=== PATIENT | male | born 1960 | race Caucasian/White ===

== ENCOUNTER 2020-05-20 07:05 | Inpatient (IN) | payer MEDICARE, OTHER ==
[~2020-05-20] VITALS: Ht 185.4 cm; Wt 124.7 kg
[~2020-05-20 07:05] MED LIST: ALBUTEROL0.63 MG/3 NEB; ALBUTEROL2.5 MG/3 M NEB; ALDACTONE 25MG25 MG PO; ALDACTONE25 MG PO; AMLODIPINE BESYL5 MG PO; BANOPHEN25 M1 PO; BENADRYL 25MG C25 MG PO; BENADRYL E12.5 MG/5 PO; BREO ELLIPTA 21 EACH INH; CIPRO500 MG PO; CLINDAMYCIN HC300 MG PO; COREG 25MG TAB25 MG PO; COZAAR 50MG TAB50 MG PO; COZAAR50 MG PO; CRESTOR20 MG PO; CYANOCOBAL1000 MCG/1 INJ; DIFLUCAN 100 M100 MG PO; DULERA 200 MCG8.8 GM INH; DULOXETINE HCL30 MG PO; FERROUS SULFAT325 M2 PO; FLONASE 0.05% N16 GM; FLUZONE QU60 MCG/013 IM; FOSAMAX 10 MG T10 MG PO; FUROSEMIDE20 MG PO; GLUCOPHAGE500 MG PO; HYDROCOD-HOMAT1 EACH PO; HYZAAR 100-12.1 EACH PO; IBUPROFEN800 MG PO; INCRUSE ELLI62.5 MCG INH; INVANZ1 GM IV; JANUMET 50-1,01 EACH PO; JANUMET XR 50-1 EACH PO; K-DUR TAB 10 M10 MEQ PO; LANTUS INS100 UTS/M1 SC; LASIX20 MG PO; LEVAQUIN500 MG PO; LEVAQUIN750 MG PO; LEVOFLOXACIN750 MG PO; LOPRESSOR 50 MG50 MG PO; LOPRESSOR50 MG PO; LOSARTAN-HCTZ1 EACH PO; MELATONIN10 M2 PO; MIACALCIN NASA3.7 ML; NEURONTIN 400400 MG PO; NEURONTIN800 MG PO; NICOTINE PATCH1 EAC1 TD; NICOTINE PATCH1 EAC2 TD; NORCO 10-325 T1 EACH PO; NORCO 5-325 TA1 EACH PO; NORCO 7.5-3251 EACH PO; NORTRIPTYLINE H50 MG PO; PEPCID20 MG PO; PERCOCET 5/325 T1 EA PO; PROTONIX40 MG PO; REMERON15 MG PO; RISPERDAL0.5 MG PO; ROBAXIN-750750 MG PO; SINGULAIR10 MG PO; SPIRONOLACTONE25 MG PO; THERAGRAN M TAB1 EA PO; TOPROL XL100 MG PO; TRESIBA FL100 UNIT/1 SC; TRESIBA FL100 UNIT/1 SQ; VASCEPA1 GM PO; VENTOLIN HFA 66.7 GM INH; VITAMIN C 500500 MG PO; VITAMIN C500 M4 PO; VITAMIN D250000 UNIT PO; ZOSYN 3.3753.375 G1 IV; ZYRTEC10 MG PO; ZYVOX 600 MG T600 MG PO; ZYVOX IV 6600 MG/300 IV
[2020-05-20 07:47] LABS: HEMOGLOBIN 12.1 gm/dl (14.0-17.5); RED BLOOD COUNT 4.06 M/UL (4.20-5.50); WHITE BLOOD COUNT 9.3 K/UL (4.5-11.0)
[2020-05-20] MEDS ORDERED: FUROSEMIDE20 MG PO (09:30)
[2020-05-20] MEDS ORDERED: BREO ELLIPTA 11 EACH INH (09:32)
[2020-05-20] MEDS ORDERED: PAMELOR50 MG PO (09:34)
[2020-05-20] MEDS ORDERED: VENTOLIN HFA 66.7 GM INH (09:37)
[2020-05-20] MEDS ORDERED: HYDROCODON-ACE1 EAC6 PO (09:40)
[2020-05-20] MEDS ORDERED: JANUMET 50-1,01 EACH PO (09:45)
[2020-05-20] MEDS ORDERED: SPIRONOLACTONE50 MG PO (16:44)
[2020-05-20] MEDS ORDERED: NORTRIPTYLINE H50 MG PO (16:44)
[2020-05-20] MEDS ORDERED: FISH OIL 1,0001 EACH PO (16:45)
[2020-05-20] MEDS ORDERED: VITAMIN D21250 MCG PO (16:46)
[2020-05-20] MEDS ORDERED: NOVOLOG MI100 UNIT/1 SC (16:47)
[2020-05-21 03:50] LABS: HEMOGLOBIN 11.5 gm/dl (14.0-17.5); RED BLOOD COUNT 3.87 M/UL (4.20-5.50)
[2020-05-21 03:57] LABS: WHITE BLOOD COUNT 12.2 K/UL (4.5-11.0)
[2020-05-21 13:21] LABS: BUN/CREATININE RATIO 21 (0-10)
[2020-05-22 10:16] LABS: HEMOGLOBIN 11.4 gm/dl (14.0-17.5); RED BLOOD COUNT 3.78 M/UL (4.20-5.50); WHITE BLOOD COUNT 13.1 K/UL (4.5-11.0)
--- NOTE | 2020-05-22 14:58 | NUR ---
DRESSING CHANGED PER MD ORDER, PATIENT TOLERATED WELL.
[2020-05-23 03:16] LABS: HEMOGLOBIN 12.1 gm/dl (14.0-17.5); RED BLOOD COUNT 4.01 M/UL (4.20-5.50)
[2020-05-23 03:20] LABS: WHITE BLOOD COUNT 8.7 K/UL (4.5-11.0)
[2020-05-23 03:42] LABS: BUN/CREATININE RATIO 16 (0-10)
[2020-05-23] MEDS ORDERED: NEURONTIN800 MG PO (09:52)
--- NOTE | 2020-05-23 18:38 | NUR ---
DRESSING CHANGED COMPLETED ORDERED.
[2020-05-24 05:37] LABS: HEMOGLOBIN 12.8 gm/dl (14.0-17.5); RED BLOOD COUNT 4.35 M/UL (4.20-5.50); WHITE BLOOD COUNT 8.8 K/UL (4.5-11.0)
[2020-05-24 05:55] LABS: BUN/CREATININE RATIO 19 (0-10)
[2020-05-25 06:26] LABS: BUN/CREATININE RATIO 19 (0-10)
[2020-05-25] MEDS ORDERED: AUGMENTIN 875-1 EACH PO (12:26)
== END 2020-05-25 17:23 | disposition home or self-care (01) | DRG 40 ==
LOC: OR 07:05 → M/S 07:05 → OR 05-21 08:55 → M/S 05-22 13:15
PROVIDERS: Physician Assistant Medical; Podiatrist Foot & Ankle Surgery; ADMIT Internal Medicine
PROC: 0LSP0ZZ Reposition Left Lower Leg Tendon, Open Approach (ICD-10-PCS; principal; 2020-05-21)
PROC: 0SGL0KZ Fusion of Left Tarsometatarsal Joint with Nonautologous Tissue Substitute, Open Approach (ICD-10-PCS; principal; 2020-05-21)
PROC: 0SGJ04Z Fusion of Left Tarsal Joint with Internal Fixation Device, Open Approach (ICD-10-PCS; 2020-05-21)
DX: E11.610 Type 2 diabetes mellitus with diabetic neuropathic arthropathy (principal); I50.43 Acute on chronic combined systolic (congestive) and diastolic (congestive) heart failure; I13.0 Hypertensive heart and chronic kidney disease with heart failure and stage 1 through stage 4 chronic kidney disease, or unspecified chronic kidney disease; Z79.4 Long term (current) use of insulin; J44.9 Chronic obstructive pulmonary disease, unspecified; Z89.422 Acquired absence of other left toe(s); G89.29 Other chronic pain; E78.5 Hyperlipidemia, unspecified; F17.210 Nicotine dependence, cigarettes, uncomplicated; E83.42 Hypomagnesemia; M25.375 Other instability, left foot; Z20.822 Contact with and (suspected) exposure to COVID-19; E11.621 Type 2 diabetes mellitus with foot ulcer; Z89.421 Acquired absence of other right toe(s); L97.529 Non-pressure chronic ulcer of other part of left foot with unspecified severity; Z88.1 Allergy status to other antibiotic agents; M62.472 Contracture of muscle, left ankle and foot; K21.9 Gastro-esophageal reflux disease without esophagitis; E66.01 Morbid (severe) obesity due to excess calories; I11.0 Hypertensive heart disease with heart failure; F41.9 Anxiety disorder, unspecified; F32.9 Major depressive disorder, single episode, unspecified; Z68.30 Body mass index [BMI] 30.0-30.9, adult; E11.22 Type 2 diabetes mellitus with diabetic chronic kidney disease; N18.30 Chronic kidney disease, stage 3 unspecified
CPT/HCPCS: 36415; 73610; 73620; 73630; 73650; 76000; 80048; 80053; 80202; 82962; 83036; 83735; 84100; 85027; 94640; 94760; 96374; 96375; 96376; 97116-GP-CQ; 97162; 97530-GP-CQ; C1713; G0378; J0690; J1650; J2001; J2270; J2370; J2405; J2543; J2704; J2795; J3370; J3475; J7030; J7070; J7120; Q4133

== ENCOUNTER → 2020-06-08 | Outpatient (CLI) | payer MEDICARE, OTHER ==
[~2020-06-08] MED LIST changes: +AUGMENTIN 875-1 EACH PO; +BREO ELLIPTA 11 EACH INH; +FISH OIL 1,0001 EACH PO; +HYDROCODON-ACE1 EAC6 PO; +NOVOLOG MI100 UNIT/1 SC; +PAMELOR50 MG PO; +SPIRONOLACTONE50 MG PO; +VITAMIN D21250 MCG PO
== END ==
LOC: KOH-I 14:18
DX: M14.672 Charcot's joint, left ankle and foot (principal); Z98.890 Other specified postprocedural states
CPT/HCPCS: 73630

== ENCOUNTER → 2020-09-03 | Outpatient (CLI) | payer MEDICARE, OTHER | LOC: KOH-I 15:48 | DX: M14.672 Charcot's joint, left ankle and foot (principal); Z98.890 Other specified postprocedural states | CPT/HCPCS: 73630 ==

== ENCOUNTER → 2020-09-15 | Outpatient (CLI) | payer MEDICARE, OTHER | LOC: KOH-I 15:32 | DX: A52.16 Charcot's arthropathy (tabetic) (principal); M19.072 Primary osteoarthritis, left ankle and foot; M19.071 Primary osteoarthritis, right ankle and foot | CPT/HCPCS: 73610; 73630 ==

== ENCOUNTER → 2021-03-04 | Outpatient (CLI) | payer MEDICARE, OTHER | LOC: KOH-I 14:48 | DX: M25.572 Pain in left ankle and joints of left foot (principal); M25.571 Pain in right ankle and joints of right foot; M79.672 Pain in left foot; M79.671 Pain in right foot; R93.6 Abnormal findings on diagnostic imaging of limbs; S93.125A Dislocation of metatarsophalangeal joint of left lesser toe(s), initial encounter | CPT/HCPCS: 73610; 73630 ==

== ENCOUNTER 2021-03-24 06:29 | Inpatient (IN) | payer MEDICARE, OTHER ==
[~2021-03-24] VITALS: Ht 185.4 cm; Wt 121.1 kg
[~2021-03-24 06:29] MED LIST changes: +ALENDRONATE SOD10 MG PO; +ASPIRIN CHEWABL81 MG PO; +BACTRIM DS TAB1 EACH PO; +BROMPHENIR-PSE118 ML PO; +CARVEDILOL25 MG PO; +CLONIDINE HCL0.2 MG PO; -COREG 25MG TAB25 MG PO; +CYMBALTA 30 MG30 MG PO; +GABAPENTIN800 MG PO; +HYDRALAZINE HCL25 MG PO; +JANUVIA25 MG PO; +LASIX 40 MG TAB40 MG PO; +NOVOLOG FL100 UNIT/1 INJ; +PROAIR DIGIHAL90 MCG INH
[2021-03-24] MEDS ORDERED: CLEOCIN HCL300 MG PO (07:33)
[2021-03-24] MEDS ORDERED: VENOFER 20020 MG/ML IV (07:35)
[2021-03-24] MEDS ORDERED: CYANOCOBAL1000 MCG/1 IM (07:39)
[2021-03-24] MEDS ORDERED: COREG 25MG TAB25 MG PO (08:12)
[2021-03-24] MEDS ORDERED: NIFEDIPINE ER30 M1 PO (14:50)
[2021-03-24] MEDS ORDERED: TIZANIDINE HCL4 MG PO (14:51)
[2021-03-24] MEDS ORDERED: ENDOCET 10-3251 EACH PO (14:54)
[2021-03-24] MEDS ORDERED: IPRAT-ALBUT 0.5-3 ML NEB (14:59)
[2021-03-24] MEDS ORDERED: NORTRIPTYLINE H50 MG PO (14:59)
[2021-03-24] MEDS ORDERED: PROTONIX 40 MG40 M1 PO (15:00)
[2021-03-24] MEDS ORDERED: LOSARTAN POTASS50 MG PO (15:01)
[2021-03-24] MEDS ORDERED: METFORMIN HCL500 MG PO (15:02)
[2021-03-24] MEDS ORDERED: BASAGLAR K100 UNIT/1 SQ (15:04)
[2021-03-24] MEDS ORDERED: DULOXETINE HCL30 MG PO (15:34)
[2021-03-24] MEDS ORDERED: DRISDOL1250 MCG PO (15:35)
[2021-03-24] MEDS ORDERED: BREO ELLIPTA 11 EACH INH (15:36)
[2021-03-24] MEDS ORDERED: PROMETHAZINE HC25 M1 PO (15:38)
[2021-03-24] MEDS ORDERED: VISTARIL50 MG PO (15:42)
[2021-03-24] MEDS ORDERED: TRULICITY0.75 MG/0. SQ (15:43)
[2021-03-24] MEDS ORDERED: VITAMIN B-122500 MCG SL (15:44)
[2021-03-24] MEDS ORDERED: PROBIOTIC1 EAC1 PO (15:45)
[2021-03-24] MEDS ORDERED: DAILY VALUE1 EACH PO (15:45)
[2021-03-25 05:59] LABS: HEMOGLOBIN 8.7 gm/dl (14.0-17.5); RED BLOOD COUNT 3.67 M/UL (4.20-5.50); WHITE BLOOD COUNT 10.4 K/UL (4.5-11.0)
[2021-03-25 06:14] LABS: BUN/CREATININE RATIO 14 (0-10)
--- NOTE | 2021-03-25 19:13 | NUR ---
DSG CHANGED TO LE BETADINE AND DRY DSG .PT TOLERATED. CALL [facility] AND PHONE IN REACH.
[2021-03-26 07:32] LABS: HEMOGLOBIN 9.3 gm/dl (14.0-17.5); WHITE BLOOD COUNT 9.1 K/UL (4.5-11.0)
[2021-03-26 07:35] LABS: RED BLOOD COUNT 4.05 M/UL (4.20-5.50)
[2021-03-26 07:48] LABS: BUN/CREATININE RATIO 14 (0-10)
[2021-03-27 07:47] LABS: HEMOGLOBIN 9.7 gm/dl (14.0-17.5); RED BLOOD COUNT 4.18 M/UL (4.20-5.50)
[2021-03-27 08:22] LABS: BUN/CREATININE RATIO 16 (0-10)
[2021-03-28 13:04] LABS: HEMOGLOBIN 10.6 gm/dl (14.0-17.5); RED BLOOD COUNT 4.38 M/UL (4.20-5.50); WHITE BLOOD COUNT 9.1 K/UL (4.5-11.0)
[2021-03-28 13:27] LABS: BUN/CREATININE RATIO 17 (0-10)
== END 2021-03-29 15:50 | DRG 41 ==
LOC: M/S 06:29 → OR 06:29 → M/S 13:06 → OR 13:07 → M/S 13:07 → OR 15:00 → M/S 03-26 21:29
PROVIDERS: Nurse Practitioner Family; ADMIT Orthopaedic Surgery
PROC: 0Y6J0Z1 Detachment at Left Lower Leg, High, Open Approach (ICD-10-PCS; principal; 2021-03-29)
DX: E11.610 Type 2 diabetes mellitus with diabetic neuropathic arthropathy (principal); M86.8X7 Other osteomyelitis, ankle and foot; E87.1 Hypo-osmolality and hyponatremia; E87.2 Acidosis; Z20.822 Contact with and (suspected) exposure to COVID-19; F17.210 Nicotine dependence, cigarettes, uncomplicated; E11.69 Type 2 diabetes mellitus with other specified complication; E11.65 Type 2 diabetes mellitus with hyperglycemia; I10 Essential (primary) hypertension; J44.9 Chronic obstructive pulmonary disease, unspecified; J45.909 Unspecified asthma, uncomplicated; K21.9 Gastro-esophageal reflux disease without esophagitis; D64.9 Anemia, unspecified; E11.40 Type 2 diabetes mellitus with diabetic neuropathy, unspecified; Z96.651 Presence of right artificial knee joint; G89.29 Other chronic pain; E78.5 Hyperlipidemia, unspecified; Z88.1 Allergy status to other antibiotic agents; Z79.899 Other long term (current) drug therapy; Z98.890 Other specified postprocedural states; Z80.8 Family history of malignant neoplasm of other organs or systems; Z79.82 Long term (current) use of aspirin; Z89.422 Acquired absence of other left toe(s); Z83.3 Family history of diabetes mellitus
CPT/HCPCS: 36415; 80048; 82962; 85018; 85025; 85027; 93005; 94640; 94664; 94760; 97110; 97110-GP-CQ; 97162; 97167; 97530; 97530-GP-CQ; 97535; J0171; J0690; J1100; J1170; J1650; J2001; J2250; J2704; J2710; J2795; J3010; J7030; J7120; U0002; U0003